=== PATIENT | male | born 2000 | race Hispanic/Latino ===

== ENCOUNTER 2023-01-09 20:46 | Emergency (ER) | payer OTHER ==
[2023-01-09] MEDS ORDERED: Acetaminophen/Codeine 30-300mg Tablet ONE (22:02)
[2023-01-09] MEDS ORDERED: Hydrocodone-Acetamin 15 ML UDCUP ONE (22:06)
== END 2023-01-10 03:00 | disposition short-term general hospital (02) ==
LOC: NAV ERS 20:46
DX: S02.641A Fracture of ramus of right mandible, initial encounter for closed fracture (principal); S00.83XA Contusion of other part of head, initial encounter; Y04.0XXA Assault by unarmed brawl or fight, initial encounter
CPT/HCPCS: 70486